=== PATIENT | female | born 2000 | race Caucasian/White ===

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

== ENCOUNTER 2020-04-06 22:46 | Emergency (ER) | payer SELFPAY ==
[~2020-04-06] VITALS: Ht 167.6 cm; Wt 72.7 kg
[2020-04-06 22:52] VITALS: BP 140/86
[2020-04-07 00:09] LABS: HCG UR SG 1.017 (1.003-1.030); MICROSCOPIC AUTO
--- NOTE | 2020-04-07 00:51 | NUR ---
pt to room from lobby
--- NOTE | 2020-04-07 01:00 | NUR ---
Assist RN: First contact with patient: patient presents to ER c/o vaginal itching and pain with sex and urination. Symptoms x1 week. Patient states it started with vaginal swelling; she started treating self for a yeast infection but symptoms did not resolve. Also c/o vaginal discharge.
--- NOTE | 2020-04-07 01:05 | NUR ---
Chaperoned pelvic exam with ERP.
[2020-04-07 01:48] LABS: CLUE CELLS NONE SEEN (NONE SEEN); WET PREP WBCS FEW (FEW)
== END 2020-04-07 02:54 | disposition home or self-care (01) ==
LOC: ED 04-07 00:13
DX: N30.00 Acute cystitis without hematuria (principal); B37.3 Candidiasis of vulva and vagina; R30.0 Dysuria; N89.8 Other specified noninflammatory disorders of vagina
CPT/HCPCS: 81001; 81025; 87077; 87086; 87186; 87210; 87491; 87591; 87808; 99284